=== PATIENT | male | born 1965 | race American Indian/Alaskan Native ===

== ENCOUNTER 2017-08-02 19:12 | Emergency (ER) | payer MEDICAID ==
[2017-08-02 19:21] VITALS: BP 136/89
--- NOTE | 2017-08-02 22:07 | XRay Report ---
FINAL REPORT EXAM: XR CHEST ROUTINE 2V HISTORY: CCC TECHNIQUE: PA and lateral views of the chest PRIORS: None. FINDINGS: Lines, tubes, and devices: N/A Lungs and pleura: Trachea is normal in position. Lungs are clear of infiltrate, pleural effusion, vascular congestion, or pneumothorax. Cardiomediastinal silhouette: Cardiac and mediastinal silhouettes are unremarkable. Other: Bony structures are intact. IMPRESSION: No acute cardiopulmonary process seen.
--- NOTE | 2017-08-02 22:28 | Emergency Department Report ---
- General Chief Complaint: Upper Respiratory Infection Stated Complaint: cold Time Seen by Provider: 08/02/17 20:15 Source: patient Mode of arrival: Ambulatory Limitations: No Limitations - History of Present Illness Initial Comments: 52-year-old -[place] male comes in for concerns of pneumonia exposure. He reports that his mother is admitted to the hospital she was diagnosed with pneumonia and he's been having coughing. Patient denies any fever no chills no nausea no vomiting he does admit to cough runny nose sore throat as burning. He does have a past medical history diabetes as well as chronic back pain. Patient also complains of his back pain and says he would not be receiving this pain specialist until next week. MD Complaint: cough, sore throat, rhinorrhea, nasal congestion Quality: burning, aching Consistency: constant Worsens With: activity (back pain) Associated Symptoms: rhinorrhea, nasal congestion, sore throat. denies: fever, chills, headache, stiff neck, chest pain, shortness of breath, abdominal pain, nausea, vomiting, diarrhea - Related Data Home Medications Medication Instructions Recorded Confirmed Last Taken metFORMIN [Glucophage] 500 mg PO BID 12/31/15 08/02/17 Unknown Baclofen [Lioresal] 10 mg PO TID 08/02/17 08/02/17 Unknown Gabapentin 300 mg PO BID 08/02/17 08/02/17 Unknown HYDROcodone/APAP 5-325 [[place] 2 each PO Q6HR PRN 08/02/17 08/02/17 Unknown 5-325 mg TAB] Previous Rx's Medication Instructions Recorded Last Taken Type Benzonatate [Tessalon Perles] 100 mg PO Q8HR #15 capsule 08/02/17 Unknown Rx traMADol [Ultram 50 MG tab] 50 mg PO Q4HR PRN #12 tablet 08/02/17 Unknown Rx Allergies Allergy/AdvReac Type Severity Reaction Status Date / Time aspirin Allergy Hives Verified 03/24/15 13:35 ED Review of Systems ROS: Stated complaint: cold Other details as noted in HPI Constitutional: denies: chills, fever Eyes: denies: eye pain, eye discharge, vision change ENT: throat pain, congestion Respiratory: cough Cardiovascular: denies: chest pain, palpitations Endocrine: no symptoms reported Gastrointestinal: denies: abdominal pain, nausea, diarrhea Genitourinary: denies: urgency, dysuria Musculoskeletal: denies: back pain, joint swelling, arthralgia Skin: denies: rash, lesions Neurological: denies: headache, weakness, paresthesias Psychiatric: denies: anxiety, depression Hematological/Lymphatic: denies: easy bleeding, easy bruising ED Past Medical Hx - Past Medical History Hx Diabetes: Yes Hx Asthma: Yes - Surgical History Additional Surgical History: l4-l5 removal - Social History Smoking Status: Never Smoker Substance Use Type: None - Medications Home Medications: Home Medications Medication Instructions Recorded Confirmed Last Taken Type metFORMIN [Glucophage] 500 mg PO BID 12/31/15 08/02/17 Unknown History Baclofen [Lioresal] 10 mg PO TID 08/02/17 08/02/17 Unknown History Benzonatate [Tessalon Perles] 100 mg PO Q8HR #15 capsule 08/02/17 Unknown Rx Gabapentin 300 mg PO BID 08/02/17 08/02/17 Unknown History HYDROcodone/APAP 5-325 [[place] 2 each PO Q6HR PRN 08/02/17 08/02/17 Unknown History 5-325 mg TAB] traMADol [Ultram 50 MG tab] 50 mg PO Q4HR PRN #12 tablet 08/02/17 Unknown Rx ED Physical Exam - General Limitations: No Limitations General appearance: alert, in no apparent distress - Head Head exam: Present: atraumatic, normocephalic - Eye Eye exam: Present: normal appearance - ENT ENT exam: Present: mucous membranes moist - Neck Neck exam: Present: normal inspection - Respiratory Respiratory exam: Present: normal lung sounds bilaterally. Absent: respiratory distress - Cardiovascular Cardiovascular Exam: Present: regular rate, normal rhythm. Absent: systolic murmur, diastolic murmur, rubs, gallop - GI/Abdominal GI/Abdominal exam: Present: soft, normal bowel sounds - Rectal Rectal exam: Present: deferred - Extremities Exam Extremities exam: Present: normal inspection - Back Exam Back exam: Present: normal inspection - Neurological Exam Neurological exam: Present: alert, oriented X3 - Psychiatric Psychiatric exam: Present: normal affect, normal mood - Skin Skin exam: Present: warm, dry, intact, normal color. Absent: rash ED Course Vital Signs 08/02/17 19:12 Temperature 98.8 F Pulse Rate 83 Respiratory 18 Rate Blood Pressure 136/89 O2 Sat by Pulse 98 Oximetry ED Medical Decision Making - Medical Decision Making Patient's been evaluated by this provider fast track. Discussed the patient that his x-ray was negative for any pneumonia or bronchitis. Discussed the patient with discharge him on Tessalon Perles for cough and Tylenol for his chronic back pain. Discussed the patient is to follow-up with his primary care provider if symptoms persist or gets worse. He should verbalize understanding Critical care attestation.: If time is entered above; I have spent that time in minutes in the direct care of this critically ill patient, excluding procedure time. ED Disposition Clinical Impression: Chronic back pain greater than 3 months duration Allergic rhinitis Qualifiers: Allergic rhinitis trigger: unspecified Allergic rhinitis seasonality: seasonal Qualified Code(s): J30.2 - Other seasonal allergic rhinitis Disposition: - TO HOME OR SELFCARE Is pt being admited?: No Does the pt Need Aspirin: No Condition: Stable Instructions: Allergic Rhinitis (ED), Chronic Back Pain (ED) Additional Instructions: Take medication as prescribed. Symptoms persist or gets worse follow-up with her primary care provider. Prescriptions: Benzonatate [Tessalon Perles] 100 mg PO Q8HR #15 capsule traMADol [Ultram 50 MG tab] 50 mg PO Q4HR PRN #12 tablet PRN Reason: Pain Referrals: FRENCH MOROCHO MD [Primary Care Provider] - 3-5 Days Forms: Work/School Release Form(ED)
== END 2017-08-02 22:35 | disposition home or self-care (01) ==
LOC: ED 19:12
DX: J30.9 Allergic rhinitis, unspecified (principal); G89.29 Other chronic pain; M54.9 Dorsalgia, unspecified; E11.9 Type 2 diabetes mellitus without complications; J45.909 Unspecified asthma, uncomplicated; Z88.6 Allergy status to analgesic agent
CPT/HCPCS: 71046; 99283

== ENCOUNTER 2017-08-31 16:40 | Emergency (ER) | payer MEDICAID ==
[2017-08-31 19:12] LABS: Basophils # (Auto) 0.1 K/mm3 (0.0-0.1); Basophils % (Auto) 1.2 % (0.0-1.8); Eosinophils # (Auto) 0.2 K/mm3 (0.0-0.4); Eosinophils % (Auto) 2.2 % (0.0-4.3); Hematocrit 48.1 % (35.5-45.6); Hemoglobin 16.1 gm/dl (11.8-15.2); Lymphocytes # (Auto) 2.6 K/mm3 (1.2-5.4); Lymphocytes % (Auto) 27.5 % (13.4-35.0); Mean Corpuscular HGB Conc 33 % (32-34); Mean Corpuscular Hemoglobin 30 pg (28-32); Mean Corpuscular Volume 89 fl (84-94); Monocytes # (Auto) 0.6 K/mm3 (0.0-0.8); Monocytes % (Auto) 6.7 % (0.0-7.3); Platelet Count 319 K/mm3 (140-440)
[2017-08-31 19:20] LABS: BUN/Creatinine Ratio 7; Blood Urea Nitrogen 6 mg/dL (9-20); Calcium 9.1 mg/dL (8.4-10.2); Hemolysis Index 13
[2017-08-31 19:31] LABS: Bilirubin,Urine NEG (Negative); Blood,Urine NEG (Negative); Color,Urine Yellow (Yellow); Protein,Urine <15 mg/dL mg/dL (Negative); Urobilinogen,Urine < 2.0 mg/dL (<2.0)
[2017-08-31 19:38] LABS: Amphetamine Screen,Urine PRESUMPTIVE NEGATIVE; Benzodiazepines Screen,Urine PRESUMPTIVE NEGATIVE; Cannabinoid Screen,Urine PRESUMPTIVE NEGATIVE; Methadone Screen,Urine PRESUMPTIVE NEGATIVE; Opiate Screen,Urine PRESUMPTIVE NEGATIVE
[2017-08-31 20:01] LABS: Cocaine Screen,Urine PRESUMPTIVE POSITIVE
[2017-08-31] MEDS ORDERED: NACL 0.9% 1000 ML 1,000 ML IV ONE ×2 (23:35)
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
[2017-09-01] MEDS ORDERED: HumuLIN R SUB-Q ONE (00:20)
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
[2017-09-01] MEDS ORDERED: NACL 0.9% 1000 ML 1,000 ML IV ONE (01:08)
[2017-09-01] MEDS: LIORESAL PO SCH ×3 (08:00→19:50)
[2017-09-01] MEDS ORDERED: GLUCOPHAGE PO SCH (08:00)
[2017-09-01] MEDS: NEURONTIN PO SCH ×2 (11:00→21:54)
[2017-09-01] MEDS ORDERED: LIORESAL PO ONE (22:51)
[2017-09-02] MEDS ORDERED: GLUCOPHAGE ONE (10:18)
[2017-09-02] MEDS: LIORESAL PO SCH ×3 (10:27→20:20)
[2017-09-02] MEDS: NEURONTIN PO SCH ×2 (10:27→22:48)
[2017-09-02] MEDS ORDERED: NORCO 5/325 PO PRN (10:33)
--- NOTE | 2017-09-02 12:11 | Consultation ---
History of Present Illness - Reason for Consult Consult date: 09/02/17 Reason for consult: Mental Health Evaluation Requesting physician: DILPI NARANJO - Chief Complaint Chief complaint: "I am suicidal" - History of Present Psychiatric Illness 52-year-old male with a past medical history of asthma, mck-qhabqdi-buodsskwn diabetes, cocaine abuse, and chronic back pain with previous L4-L5 surgery presents to the hospital with complaints of SI's. Today the patient is calm and cooperative during the assessment. 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 He stated that he would walk into traffic to kill himself if he had the chance. He stated a previous suicide attempt when asked. He stated feeling sad, hopeless, and helpless the past couple months. He denies HI's and AVH's. He admitted to erratic sleep and denies a poor appetite. He denies excessive alcohol consumption (etoh). Medications and Allergies Allergies Allergy/AdvReac Type Severity Reaction Status Date / Time aspirin Allergy Hives Verified 03/24/15 13:35 Home Medications Medication Instructions Recorded Confirmed Last Taken Type metFORMIN [Glucophage] 500 mg PO BID 12/31/15 09/02/17 Unknown History Baclofen [Lioresal] 10 mg PO TID 08/02/17 09/02/17 Unknown History Benzonatate [Tessalon Perles] 100 mg PO Q8HR #15 capsule 08/02/17 09/02/17 Unknown Rx Gabapentin 300 mg PO BID 08/02/17 09/02/17 Unknown History HYDROcodone/APAP 5-325 [[place] 2 each PO Q6HR PRN 08/02/17 09/02/17 Unknown History 5-325 mg TAB] Active Meds: Active Medications Acetaminophen/Hydrocodone Bitart ([place] 5/325) 2 each PO Q6HR PRN PRN Reason: Pain Baclofen (Lioresal) 10 mg PO TID [facility] Last Admin: 09/02/17 10:27 Dose: 10 mg Benzonatate (Tessalon Perles) 100 mg PO Q8HR JASMYNE Gabapentin (Neurontin) 300 mg PO BID [facility] Last Admin: 09/02/17 10:27 Dose: 300 mg Metformin HCl (Glucophage) 500 mg PO ONCE ONE Stop: 09/03/17 08:01 Last Admin: 09/02/17 10:40 Dose: 500 mg Past psychiatric history - Past Medical History Past Medical History: diabetes, other (Chronic back pain) Past Surgical History: Other (Back Surgery) - past Psychiatric treatment and history psychiatric treatment history: a hx of substance abuse. Denies a psy fam hx. - Social History Social history: other (Homeless) Mental Status Exam - Vital signs Last Vital Signs Temp 97.6 F 09/02/17 08:24 Pulse 66 09/02/17 08:24 Resp 20 09/02/17 08:24 BP 119/80 09/02/17 08:24 Pulse Ox 98 09/02/17 08:24 - Exam Narrative exam: MSE: Appearance: calm, cooperative Behavior: regular eye contact Speech: regular rate and tone, hyper verbal Mood: "depressed" Affect: flat Thought Process: circumstantial Thought Content: denies HI's and AVH's Motor Activity: sitting up in bed Cognition: A/O x3 Insight: fair Judgment: variable Results Result Diagrams: 08/31/17 18:54 08/31/17 18:54 Abnormal lab results 09/02/17 Range/Units 10:29 POC Glucose 329 H (70-105) All other labs normal. Assessment and Plan Assessment and plan: Impression: MDD, Severe Type. Substance Use DO. (Cocaine). Today the patient is calm and cooperative during the assessment. The patient endorses SI's. DDx: R/O Bipolar DO, R/O Substance Induced Mood DO Recommendation/Plan: Continue 1013 with placement to inpatient psy services. Start Zoloft 50 mg Po daily for depression and Trazodone 50 mg PO HS PRN for sleep. Discussed black box warnings with patient reference antidepressants.
[2017-09-02] MEDS ORDERED: DESYREL PO PRN (12:22)
[2017-09-02] MEDS: ZOLOFT PO SCH (12:53)
[2017-09-02] MEDS: TESSALON PERLES PO SCH ×2 (13:33→22:49)
[2017-09-03] MEDS ORDERED: GLUCOPHAGE PO ONE (08:00)
[2017-09-03] MEDS: LIORESAL PO SCH ×3 (09:16→21:38)
[2017-09-03] MEDS: GLUCOPHAGE PO SCH ×3 (09:16→19:25)
[2017-09-03] MEDS: TESSALON PERLES PO SCH ×3 (09:16→23:12)
[2017-09-03] MEDS: NEURONTIN PO SCH ×2 (10:07→23:12)
[2017-09-03] MEDS: ZOLOFT PO SCH (10:07)
--- NOTE | 2017-09-03 14:17 | Progress Note ---
Subjective - Reason for Consult Consult date: 09/03/17 Reason for consult: Psychiatric Follow-up Evaluation - Chief Complaint Chief complaint: "" 52-year-old male with a past medical history of asthma, [id number] diabetes, cocaine abuse, and chronic back pain with previous L4-L5 surgery presents to the hospital with complaints of SI's. Mental Status Exam - Vital signs Last Vital Signs Temp 99.2 F 09/02/17 12:27 Pulse 82 09/03/17 08:52 Resp 16 09/03/17 09:16 BP 119/78 09/03/17 08:52 Pulse Ox 99 09/03/17 08:55 - Exam Narrative exam: Mental Status Exam: Appearance: calm, cooperative Behavior: regular eye contact Speech: regular rate and tone, hyper verbal Mood: "" Affect: flat Thought Process: circumstantial Thought Content: denies HI's and AVH's Motor Activity: sitting up in bed Cognition: A/O x3 Insight: fair Judgment: variable Assessment and Plan Assessment and plan: Impression: MDD, Severe Type. Substance Use DO. (Cocaine). Today the patient is calm and cooperative during the assessment. The patient endorses SI's. DDx: R/O Bipolar DO, R/O Substance Induced Mood DO Recommendation/Plan: Continue 1013 with placement to inpatient psy services. Start Zoloft 50 mg Po daily for depression and Trazodone 50 mg PO HS PRN for sleep. Discussed black box warnings with patient reference antidepressants.
[2017-09-04 02:36] VITALS: BP 124/78
== END 2017-09-04 04:33 ==
LOC: ED 16:40 → EEVIPCON 16:40 → ED 09-04 04:33
DX: K44.9 Diaphragmatic hernia without obstruction or gangrene (principal); F14.10 Cocaine abuse, uncomplicated; M46.80 Other specified inflammatory spondylopathies, site unspecified; R45.851 Suicidal ideations; E11.9 Type 2 diabetes mellitus without complications; F17.200 Nicotine dependence, unspecified, uncomplicated; F12.10 Cannabis abuse, uncomplicated; Z88.6 Allergy status to analgesic agent
CPT/HCPCS: 36415; 70450; 71046; 74177; 80048; 80307; 81001; 82550; 82962; 85025; 96360; 96361; 96372; 99285; G0480; J7030; Q9967; 80320; J1815

== ENCOUNTER 2018-10-10 03:48 | Emergency (ER) | payer MEDICAID ==
[2018-10-10 03:58] VITALS: BP 132/85
--- NOTE | 2018-10-10 04:26 | XRay Report ---
PROCEDURE: XR CHEST 1V AP TECHNIQUE: Chest radiograph single view. HISTORY: Chest Pain COMPARISONS: 08/31/2017 . FINDINGS: Heart: Normal. Mediastinum/Vessels: Normal. Lungs/Pleural space: Normal. Bony thorax: No acute osseous abnormality. Life support devices: None. IMPRESSION: No acute cardiopulmonary abnormality. This document is electronically signed by Vinny Chan MD., October 10 2018 04:24:27 AM ET
[2018-10-10 04:51] LABS: Basophils # (Auto) 0.1 K/mm3 (0.0-0.1); Basophils % (Auto) 0.8 % (0.0-1.8); Eosinophils % (Auto) 0.4 % (0.0-4.3); Hematocrit 38.8 % (35.5-45.6); Hemoglobin 13.7 gm/dl (11.8-15.2); Lymphocytes # (Auto) 1.7 K/mm3 (1.2-5.4); Lymphocytes % (Auto) 23.8 % (13.4-35.0); Mean Corpuscular HGB Conc 35 % (32-34); Mean Corpuscular Volume 90 fl (84-94); Monocytes # (Auto) 0.9 K/mm3 (0.0-0.8); Monocytes % (Auto) 12.7 % (0.0-7.3); Platelet Count 291 K/mm3 (140-440); Red Blood Count 4.34 M/mm3 (3.65-5.03)
[2018-10-10 05:27] LABS: BUN/Creatinine Ratio 9; Blood Urea Nitrogen 7 mg/dL (9-20); Calcium 8.7 mg/dL (8.4-10.2); Hemolysis Index 8
--- NOTE | 2018-10-10 08:20 | Emergency Department Report ---
HPI - General Chief Complaint: Chest Pain Time Seen by Provider: 10/10/18 08:04 - HPI HPI: Patient is a 53-year-old male comes to the ER today complaining of cough, congestion. He reports to me that his chest hurts when he coughs. [facility] and given nasal spray and what sounds like Claritin. He was not given antibiotics. And his cough has persisted. He has no fever. He is ambulatory and nontoxic. ED Past Medical Hx - Past Medical History Previous Medical History?: Yes Hx Diabetes: Yes Hx Psychiatric Treatment: Yes (DRUG USE) Hx Asthma: Yes - Surgical History Past Surgical History?: Yes Additional Surgical History: l4-l5 removal - Family History Family history: no significant - Social History Smoking Status: Never Smoker Substance Use Type: None - Medications Home Medications: Home Medications Medication Instructions Recorded Confirmed Last Taken Type metFORMIN [Glucophage] 500 mg PO BID 12/31/15 09/02/17 Unknown History Baclofen [Lioresal] 10 mg PO TID 08/02/17 09/02/17 Unknown History Benzonatate [Tessalon Perles] 100 mg PO Q8HR #15 capsule 08/02/17 09/02/17 Unknown Rx Gabapentin 300 mg PO BID 08/02/17 09/02/17 Unknown History HYDROcodone/APAP 5-325 [[place] 2 each PO Q6HR PRN 08/02/17 09/02/17 Unknown History 5-325 mg TAB] Amoxicillin [Trimox CAP] 500 mg PO BID #20 capsule 10/10/18 Unknown Rx Benzonatate [Tessalon Perles] 100 mg PO Q12H PRN #20 capsule 10/10/18 Unknown Rx Fluticasone [Flonase] 1 spray NS QDAY #1 bottle 10/10/18 Unknown Rx predniSONE [Deltasone] 20 mg PO DAILY #5 tablet 10/10/18 Unknown Rx ED Review of Systems ROS: Stated complaint: COUGH, AND COLD SYMPTOMS/CHEST PAIN Other details as noted in HPI Comment: All other systems reviewed and negative Physical Exam - Physical Exam Vital Signs: Vital Signs 10/10/18 10/10/18 03:54 03:55 Temperature 98.0 F 98 F Pulse Rate 92 H 93 H Respiratory 18 18 Rate Blood Pressure 132/85 132/85 O2 Sat by Pulse 100 99 Oximetry Physical Exam: WDWN patient in NAD VS per RN flow sheet Alert and oriented to person, place and time. S1-S2. No S3 or S4. No systolic or diastolic murmur. No JVD. No pitting edema. Lungs clear to auscultation bilaterally anteriorly and posteriorly. Abdomen soft nontender bowel sounds X4 Moves all extremities well. Mood and affect appropriate. ED Course Vital Signs 10/10/18 10/10/18 03:54 03:55 Temperature 98.0 F 98 F Pulse Rate 92 H 93 H Respiratory 18 18 Rate Blood Pressure 132/85 132/85 O2 Sat by Pulse 100 99 Oximetry ED Medical Decision Making - Lab Data Result diagrams: 10/10/18 04:08 10/10/18 04:08 - EKG Data EKG shows normal: sinus rhythm Rate: normal - EKG Data When compared to previous EKG there are: no significant change - Radiology Data Radiology results: report reviewed, image reviewed - Medical Decision Making Vital Signs 10/10/18 10/10/18 03:54 03:55 Temperature 98.0 F 98 F Pulse Rate 92 H 93 H Respiratory 18 18 Rate Blood Pressure 132/85 132/85 O2 Sat by Pulse 100 99 Oximetry Lab Results 10/10/18 10/10/18 10/10/18 Range/Units 04:08 04:08 07:15 WBC 7.3 (4.5-11.0) K/mm3 RBC 4.34 (3.65-5.03) M/mm3 Hgb 13.7 (11.8-15.2) gm/dl Hct 38.8 (35.5-45.6) % MCV 90 (84-94) fl MCH 32 (28-32) pg MCHC 35 H (32-34) % RDW 14.0 (13.2-15.2) % Plt Count 291 (140-440) K/mm3 Lymph % (Auto) 23.8 (13.4-35.0) % [place] % (Auto) 12.7 H (0.0-7.3) % Eos % (Auto) 0.4 (0.0-4.3) % Baso % (Auto) 0.8 (0.0-1.8) % Lymph # 1.7 (1.2-5.4) K/mm3 [place] # 0.9 H (0.0-0.8) K/mm3 Eos # 0.0 (0.0-0.4) K/mm3 Baso # 0.1 (0.0-0.1) K/mm3 Seg Neutrophils % 62.3 (40.0-70.0) % Seg Neutrophils # 4.6 (1.8-7.7) K/mm3 Sodium 140 (137-145) mmol/L Potassium 3.8 (3.6-5.0) mmol/L Chloride 107.4 H (98-107) mmol/L Carbon Dioxide 21 L (22-30) mmol/L Anion Gap 15 mmol/L BUN 7 L (9-20) mg/dL Creatinine 0.8 (0.8-1.5) mg/dL Estimated GFR > 60 ml/min BUN/Creatinine Ratio 9 % Glucose 99 (75-100) mg/dL Calcium 8.7 (8.4-10.2) mg/dL Troponin T < 0.010 < 0.010 (0.00-0.029) ng/mL TROP NEG X 1 12 LEAD WITH NO CHANGE X 2 LABS NOTED XRAY NOTED DC HOME WITH DC PLAN OF CARE AND PCP FOLLOW UP - Differential Diagnosis RO ACS; RO PNA Critical care attestation.: If time is entered above; I have spent that time in minutes in the direct care of this critically ill patient, excluding procedure time. ED Disposition Clinical Impression: URTI (acute upper respiratory infection), Sinusitis Disposition: DC-01 TO HOME OR SELFCARE Is pt being admited?: No Does the pt Need Aspirin: No Condition: Stable Instructions: Upper Respiratory Infection (ED) Additional Instructions: DIET TOLERATED MEDS ORDERED TODAY IN ER FOLLOW INSTRUCTIONS ON THE BOTTLE FOLLOW UP PCP WITHIN 48 HOURS TO ENSURE YOU ARE GETTING BETTER ACTIVITY TOLERATED MOTRIN OR TYLENOL FOR PAIN OR FEVER RETURN TO THE ER FOR WORSENING SYMPTOMS NOT RELIEVED BY YOUR MEDICATIONS. Prescriptions: predniSONE [Deltasone] 20 mg PO DAILY #5 tablet Fluticasone [Flonase] 1 spray NS QDAY #1 bottle Benzonatate [Tessalon Perles] 100 mg PO Q12H PRN #20 capsule PRN Reason: Cough Amoxicillin [Trimox CAP] 500 mg PO BID #20 capsule Referrals: RHEA OROZCO MD [Primary Care Provider] - 3-5 Days [facility] [Outside] - 3-5 Days Forms: AMA Form Time of Disposition: :24
== END 2018-10-10 08:37 | disposition home or self-care (01) ==
LOC: ED 03:48
DX: J06.9 Acute upper respiratory infection, unspecified (principal); J32.9 Chronic sinusitis, unspecified; E11.9 Type 2 diabetes mellitus without complications; F19.90 Other psychoactive substance use, unspecified, uncomplicated; J45.909 Unspecified asthma, uncomplicated; Z79.899 Other long term (current) drug therapy; Z88.6 Allergy status to analgesic agent
CPT/HCPCS: 36415; 71045; 80048; 84484; 85025; 93005; 93010; 99285

== ENCOUNTER 2019-06-13 22:13 | Emergency (ER) | payer MEDICAID ==
--- NOTE | 2019-06-14 01:46 | Emergency Department Report ---
HPI - General Chief Complaint: Psych Time Seen by Provider: 06/14/19 01:05 - [facility] HPI: Count Includes [facility] 12 The patient is a 54-year-old male present with a chief complaint of suicidal ideation. Patient states he is felt suicidal since yesterday and has had incre ased vivid dreams. Patient denies any attempts at harming himself recently but states his plan was to walk into traffic like he is done in the past. ED Past Medical Hx - Past Medical History Previous Medical History?: Yes Hx Hypertension: Yes Hx Diabetes: Yes Hx Psychiatric Treatment: Yes (chronic depression) Hx Asthma: Yes Additional medical history: pneumonia - Surgical History Past Surgical History?: Yes Additional Surgical History: back sx L6-L7 - Family History Family history: no significant - Social History Smoking Status: Current Every Day Smoker Substance Use Type: Alcohol, Cocaine - Medications Home Medications: Home Medications Medication Instructions Recorded Confirmed Last Taken Type Baclofen [Lioresal] 10 mg PO TID 08/02/17 06/14/19 Unknown History Gabapentin 300 mg PO BID 08/02/17 06/14/19 Unknown History HYDROcodone/APAP 5-325 [[place] 2 each PO Q6HR PRN 08/02/17 06/14/19 Unknown History 5-325 mg TAB] Fluticasone [Flonase] 1 spray NS QDAY #1 bottle 10/10/18 06/14/19 Unknown Rx Mirtazapine [Remeron 15mg TAB] 15 mg PO QHS 06/14/19 06/14/19 Unknown History ED Review of Systems ROS: Stated complaint: MH Other details as noted in HPI Psychiatric: suicidal thoughts Physical Exam - Physical Exam Vital Signs: Vital Signs 06/13/19 22:35 Temperature 97.7 F Pulse Rate 88 Respiratory 18 Rate Blood Pressure 127/69 Blood Pressure 127/69 [Left] O2 Sat by Pulse 95 Oximetry Physical Exam: GENERAL: The patient is well-developed well-nourished male standing next to chair going through his belongings in a book bag not appearing to be in acute distress. [] HEENT: Normocephalic. Atraumatic. Extraocular motions are intact. Patient has moist mucous membranes. NECK: Supple. Trachea midline CHEST/LUNGS: Clear to auscultation. There is no respiratory distress noted. HEART/CARDIOVASCULAR: Regular. There is no tachycardia. There is no gallop rub or murmur. ABDOMEN: Abdomen is soft, nontender. Patient has normal bowel sounds. There is no abdominal distention. SKIN: There is no rash. There is no edema. There is no diaphoresis. NEURO: The patient is awake, alert, and oriented. The patient is cooperative. The patient has no focal neurologic deficits. The patient has normal speech and gait. MUSCULOSKELETAL: There is no evidence of acute injury. ED Course Vital Signs 06/13/19 22:35 Temperature 97.7 F Pulse Rate 88 Respiratory 18 Rate Blood Pressure 127/69 Blood Pressure 127/69 [Left] O2 Sat by Pulse 95 Oximetry ED Medical Decision Making - Lab Data Result diagrams: 06/14/19 01:49 06/14/19 01:49 Laboratory Last Values WBC 6.9 K/mm3 (4.5-11.0) 06/14/19 01:49 RBC 4.85 M/mm3 (3.65-5.03) 06/14/19 01:49 Hgb 15.2 gm/dl (11.8-15.2) 06/14/19 01:49 Hct 44.6 % (35.5-45.6) 06/14/19 01:49 MCV 92 fl (84-94) 06/14/19 01:49 MCH 31 pg (28-32) 06/14/19 01:49 MCHC 34 % (32-34) 06/14/19 01:49 RDW 14.8 % (13.2-15.2) 06/14/19 01:49 Plt Count 209 K/mm3 (140-440) 06/14/19 01:49 Lymph % (Auto) 36.7 % (13.4-35.0) H 06/14/19 01:49 [place] % (Auto) 9.0 % (0.0-7.3) H 06/14/19 01:49 Eos % (Auto) 4.6 % (0.0-4.3) H 06/14/19 01:49 Baso % (Auto) 1.2 % (0.0-1.8) 06/14/19 01:49 Lymph # 2.6 K/mm3 (1.2-5.4) 06/14/19 01:49 [place] # 0.6 K/mm3 (0.0-0.8) 06/14/19 01:49 Eos # 0.3 K/mm3 (0.0-0.4) 06/14/19 01:49 Baso # 0.1 K/mm3 (0.0-0.1) 06/14/19 01:49 Seg Neutrophils % 48.5 % (40.0-70.0) 06/14/19 01:49 Seg Neutrophils # 3.4 K/mm3 (1.8-7.7) 06/14/19 01:49 Sodium 141 mmol/L (137-145) 06/14/19 01:49 Potassium 4.4 mmol/L (3.6-5.0) 06/14/19 01:49 Chloride 103.8 mmol/L (98-107) 06/14/19 01:49 Carbon Dioxide 24 mmol/L (22-30) 06/14/19 01:49 Anion Gap 18 mmol/L 06/14/19 01:49 BUN 10 mg/dL (9-20) 06/14/19 01:49 Creatinine 0.9 mg/dL (0.8-1.5) 06/14/19 01:49 Estimated GFR > 60 ml/min 06/14/19 01:49 BUN/Creatinine Ratio 11 % 06/14/19 01:49 Glucose 289 mg/dL (75-100) H 06/14/19 01:49 Calcium 9.3 mg/dL (8.4-10.2) 06/14/19 01:49 Total Bilirubin 0.30 mg/dL (0.1-1.2) 06/14/19 01:49 AST 55 units/L (5-40) H 06/14/19 01:49 ALT 61 units/L (7-56) H 06/14/19 01:49 Alkaline Phosphatase 91 units/L (35-129) 06/14/19 01:49 Total Protein 5.5 g/dL (6.3-8.2) L 06/14/19 01:49 Albumin 3.7 g/dL (3.9-5) L 06/14/19 01:49 Albumin/Globulin Ratio 2.1 % 06/14/19 01:49 Urine Color Yellow (Yellow) 06/14/19 Unknown Urine Turbidity Clear (Clear) 06/14/19 Unknown Urine pH 5.0 (5.0-7.0) 06/14/19 Unknown Ur Specific [place] 1.018 (1.003-1.030) 06/14/19 Unknown Urine Protein <15 mg/dl mg/dL (Negative) 06/14/19 Unknown Urine Glucose (UA) >=500 mg/dL (Negative) 06/14/19 Unknown Urine Ketones Neg mg/dL (Negative) 06/14/19 Unknown Urine Blood Neg (Negative) 06/14/19 Unknown Urine Nitrite Neg (Negative) 06/14/19 Unknown Urine Bilirubin Neg (Negative) 06/14/19 Unknown Urine Urobilinogen < 2.0 mg/dL (<2.0) 06/14/19 Unknown Ur Leukocyte Esterase Neg (Negative) 06/14/19 Unknown Urine WBC (Auto) < 1.0 /HPF (0.0-6.0) 06/14/19 Unknown Urine RBC (Auto) 1.0 /HPF (0.0-6.0) 06/14/19 Unknown U Epithel Cells (Auto) < 1.0 /HPF (0-13.0) 06/14/19 Unknown Urine Mucus Few /HPF 06/14/19 Unknown Salicylates < 0.3 mg/dL (2.8-20.0) L 06/14/19 01:49 Urine Opiates Screen Presumptive negative 06/14/19 Unknown Urine Methadone Screen Presumptive negative 06/14/19 Unknown Acetaminophen < 5.0 ug/mL (10.0-30.0) L 06/14/19 01:49 Ur Barbiturates Screen Presumptive negative 06/14/19 Unknown Ur Phencyclidine Scrn Presumptive negative 06/14/19 Unknown Ur Amphetamines Screen Presumptive negative 06/14/19 Unknown U Benzodiazepines Scrn Presumptive negative 06/14/19 Unknown Urine Cocaine Screen Presumptive negative 06/14/19 Unknown U Marijuana (THC) Screen Presumptive negative 06/14/19 Unknown Drugs of Abuse Note Disclamer 06/14/19 Unknown Plasma/Serum Alcohol < 0.01 % (0-0.07) 06/14/19 01:49 - Differential Diagnosis Suicidal ideation Critical care attestation.: If time is entered above; I have spent that time in minutes in the direct care of this critically ill patient, excluding procedure time. ED Disposition Clinical Impression: Suicidal ideation Disposition: DC/TX-65 PSY HOSP/PSY UNIT Is pt being admited?: No Does the pt Need Aspirin: No Condition: Fair Referrals: PRIMARY CARE, [Primary Care Provider] - 3-5 Days Time of Disposition: 01:46 (Awaiting acceptance)
[2019-06-14 01:56] LABS: Bilirubin,Urine NEG (Negative); Blood,Urine NEG (Negative); Color,Urine Yellow (Yellow); Mucus,Urine FEW /HPF; Protein,Urine <15 mg/dL mg/dL (Negative); Urobilinogen,Urine < 2.0 mg/dL (<2.0); WBC,Urine < 1.0 /HPF (0.0-6.0)
[2019-06-14 02:05] LABS: Amphetamine Screen,Urine PRESUMPTIVE NEGATIVE; Benzodiazepines Screen,Urine PRESUMPTIVE NEGATIVE; Cannabinoid Screen,Urine PRESUMPTIVE NEGATIVE; Cocaine Screen,Urine PRESUMPTIVE NEGATIVE; Methadone Screen,Urine PRESUMPTIVE NEGATIVE; Opiate Screen,Urine PRESUMPTIVE NEGATIVE
[2019-06-14 02:11] LABS: Basophils # (Auto) 0.1 K/mm3 (0.0-0.1); Basophils % (Auto) 1.2 % (0.0-1.8); Eosinophils # (Auto) 0.3 K/mm3 (0.0-0.4); Eosinophils % (Auto) 4.6 % (0.0-4.3); Hematocrit 44.6 % (35.5-45.6); Hemoglobin 15.2 gm/dl (11.8-15.2); Lymphocytes # (Auto) 2.6 K/mm3 (1.2-5.4); Lymphocytes % (Auto) 36.7 % (13.4-35.0); Mean Corpuscular HGB Conc 34 % (32-34); Mean Corpuscular Volume 92 fl (84-94); Monocytes # (Auto) 0.6 K/mm3 (0.0-0.8); Platelet Count 209 K/mm3 (140-440); Red Blood Count 4.85 M/mm3 (3.65-5.03); Red Cell Distribution Width 14.8 % (13.2-15.2)
[2019-06-14 02:35] LABS: Alanine Aminotransferase 61 units/L (7-56); Albumin 3.7 g/dL (3.9-5); BUN/Creatinine Ratio 11; Blood Urea Nitrogen 10 mg/dL (9-20); Calcium 9.3 mg/dL (8.4-10.2); Hemolysis Index 20
[2019-06-14 13:51] VITALS: BP 134/87
== END 2019-06-14 17:43 ==
LOC: EEVIPCON 22:13 → ED 22:13
DX: R45.851 Suicidal ideations (principal); I10 Essential (primary) hypertension; E11.9 Type 2 diabetes mellitus without complications; J45.909 Unspecified asthma, uncomplicated; F17.200 Nicotine dependence, unspecified, uncomplicated; F14.10 Cocaine abuse, uncomplicated; Z79.899 Other long term (current) drug therapy; Z88.6 Allergy status to analgesic agent
CPT/HCPCS: 36415; 80053; 80307; 80320; 81001; 82962; 85025; G0480

== ENCOUNTER 2020-02-16 10:26 | Emergency (ER) | payer MEDICAID ==
[2020-02-16] MEDS ORDERED: SODIUM CHLORIDE 0.9% 1000 ML 1,000 ML IV ONE (10:58)
[2020-02-16 12:05] LABS: Basophils # (Auto) 0.1 K/mm3 (0.0-0.1); Basophils % (Auto) 0.8 % (0.0-1.8); Eosinophils # (Auto) 0.1 K/mm3 (0.0-0.4); Eosinophils % (Auto) 1.6 % (0.0-4.3); Lymphocytes # (Auto) 2.5 K/mm3 (1.2-5.4); Lymphocytes % (Auto) 32.5 % (13.4-35.0); Mean Corpuscular HGB Conc 37 % (32-34); Mean Corpuscular Volume 89 fl (84-94); Monocytes # (Auto) 0.5 K/mm3 (0.0-0.8); Monocytes % (Auto) 6.4 % (0.0-7.3); Platelet Count 247 K/mm3 (140-440); Red Blood Count 4.81 M/mm3 (3.65-5.03)
[2020-02-16 12:12] LABS: Hematocrit 42.7 % (35.5-45.6); Hemoglobin 15.7 gm/dl (11.8-15.2)
[2020-02-16 12:22] LABS: INR 0.79 (0.87-1.13)
[2020-02-16 12:23] LABS: Creatine Kinase MB 6.4 ng/mL (0.0-4.0); Partial Thromboplastin Time 24.6 Sec. (24.2-36.6)
[2020-02-16 12:24] LABS: Alanine Aminotransferase 31 units/L (7-56); Albumin 4.2 g/dL (3.9-5)
[2020-02-16 12:27] LABS: Bilirubin,Direct < 0.2 mg/dL (0-0.2)
[2020-02-16 12:28] LABS: BUN/Creatinine Ratio 15; Blood Urea Nitrogen 15 mg/dL (9-20); Calcium 9.5 mg/dL (8.4-10.2); Hemolysis Index 117
[2020-02-16 14:02] LABS: Bilirubin,Urine NEG (Negative); Blood,Urine NEG (Negative); Color,Urine Colorless (Yellow); Mucus,Urine FEW /HPF; Protein,Urine <15 mg/dL mg/dL (Negative); Urobilinogen,Urine < 2.0 mg/dL (<2.0)
[2020-02-16 14:07] LABS: WBC,Urine < 1.0 /HPF (0.0-6.0)
[2020-02-16 14:12] LABS: Amphetamine Screen,Urine Negative; Benzodiazepines Screen,Urine Negative; Cannabinoid Screen,Urine Negative; Cocaine Screen,Urine Negative; Methadone Screen,Urine Negative; Opiate Screen,Urine Negative
[2020-02-16] MEDS ORDERED: INSULIN REGULAR, HUMAN 100 UNIT/ML 3ML VIAL IV ONE (14:25)
--- NOTE | 2020-02-16 14:34 | Emergency Department Report ---
ED General Adult HPI - General Chief complaint: Hyperglycemia Stated complaint: HIGH GLUCOSE Source: patient Mode of arrival: Ambulatory Limitations: No Limitations - History of Present Illness Initial comments: This is a 55-year-old type II diabetic man who was found to have an elevated blood sugar and his drug rehab program. He is taking Metformin 500 mg twice daily. He states he went to [facility] for the same problem a few days ago. He states that his metformin dose was not altered nor was he placed on insulin. He essentially has had the polys for the last at least 1 week. He denies fever chills shortness of breath vomiting or fever. He states he is not been on insulin in the past. -: Gradual, week(s) Associated Symptoms: denies other symptoms Treatments Prior to Arrival: other (Metformin) - Related Data Home Medications Medication Instructions Recorded Confirmed Last Taken Baclofen [Lioresal] 10 mg PO TID 08/02/17 06/14/19 Unknown Gabapentin 300 mg PO BID 08/02/17 06/14/19 Unknown HYDROcodone/APAP 5-325 [Latexo 2 each PO Q6HR PRN 08/02/17 06/14/19 Unknown 5-325 mg TAB] Mirtazapine [Remeron 15mg TAB] 15 mg PO QHS 06/14/19 06/14/19 Unknown Previous Rx's Medication Instructions Recorded Last Taken Type Fluticasone [Flonase] 1 spray NS QDAY #1 bottle 10/10/18 Unknown Rx Insulin Regular, Human [HumuLIN R] 1 units SUB-Q BID #1 bottle 02/16/20 Unknown Rx Metformin HCl [metFORMIN] 1,000 mg PO BID #60 tablet 02/16/20 Unknown Rx Allergies Allergy/AdvReac Type Severity Reaction Status Date / Time aspirin Allergy Hives Verified 03/24/15 13:35 ED Review of Systems ROS: Stated complaint: HIGH GLUCOSE Other details as noted in HPI Constitutional: denies: chills, fever Eyes: denies: eye pain, eye discharge, vision change ENT: denies: ear pain, throat pain Respiratory: denies: cough, shortness of breath, wheezing Cardiovascular: denies: chest pain, palpitations Endocrine: see HPI Gastrointestinal: denies: abdominal pain, nausea, diarrhea Genitourinary: denies: urgency, dysuria Musculoskeletal: denies: back pain, joint swelling, arthralgia Skin: denies: rash, lesions Neurological: denies: headache, weakness, paresthesias Psychiatric: denies: anxiety, depression Hematological/Lymphatic: denies: easy bleeding, easy bruising ED Past Medical Hx - Past Medical History Previous Medical History?: Yes Hx Hypertension: Yes Hx Diabetes: Yes Hx Psychiatric Treatment: Yes (chronic depression) Hx Asthma: Yes Additional medical history: pneumonia - Surgical History Past Surgical History?: Yes Additional Surgical History: back sx L6-L7 - Social History Smoking Status: Current Every Day Smoker Substance Use Type: Cocaine - Medications Home Medications: Home Medications Medication Instructions Recorded Confirmed Last Taken Type Baclofen [Lioresal] 10 mg PO TID 08/02/17 06/14/19 Unknown History Gabapentin 300 mg PO BID 08/02/17 06/14/19 Unknown History HYDROcodone/APAP 5-325 [Latexo 2 each PO Q6HR PRN 08/02/17 06/14/19 Unknown History 5-325 mg TAB] Fluticasone [Flonase] 1 spray NS QDAY #1 bottle 10/10/18 06/14/19 Unknown Rx Mirtazapine [Remeron 15mg TAB] 15 mg PO QHS 06/14/19 06/14/19 Unknown History Insulin Regular, Human [HumuLIN R] 1 units SUB-Q BID #1 bottle 02/16/20 Unknown Rx Metformin HCl [metFORMIN] 1,000 mg PO BID #60 tablet 02/16/20 Unknown Rx ED Physical Exam - General Limitations: No Limitations General appearance: alert, in no apparent distress - Head Head exam: Present: atraumatic, normocephalic - Eye Eye exam: Present: normal appearance. Absent: scleral icterus - ENT ENT exam: Present: mucous membranes moist - Neck Neck exam: Present: normal inspection - Respiratory Respiratory exam: Present: normal lung sounds bilaterally. Absent: respiratory distress - Cardiovascular Cardiovascular Exam: Present: regular rate, normal rhythm. Absent: systolic murmur, diastolic murmur, rubs, gallop - GI/Abdominal GI/Abdominal exam: Present: soft, normal bowel sounds. Absent: distended, tenderness, guarding, rebound, rigid - Rectal Rectal exam: Present: deferred - Extremities Exam Extremities exam: Present: normal inspection. Absent: pedal edema, calf tenderness - Back Exam Back exam: Present: normal inspection - Neurological Exam Neurological exam: Present: alert, oriented X3, CN II-XII intact. Absent: motor sensory deficit - Psychiatric Psychiatric exam: Present: normal affect, normal mood - Skin Skin exam: Present: warm, dry, intact, normal color. Absent: rash ED Course Vital Signs 02/16/20 10:43 Temperature 97.8 F Pulse Rate 75 Respiratory 18 Rate Blood Pressure 114/78 O2 Sat by Pulse 96 Oximetry - Reevaluation(s) Reevaluation #1: IV fluids, IV insulin, patient will be discharged on Metformin 1000 mg twice daily and sliding scale insulin. He is referred to primary care. 02/16/20 14:33 ED Medical Decision Making - Lab Data Result diagrams: 02/16/20 11:14 02/16/20 11:14 Laboratory Results - last 24 hr 02/16/20 02/16/20 02/16/20 11:01 11:14 11:14 WBC 7.6 RBC 4.81 Hgb 15.7 H Hct 42.7 MCV 89 MCH 33 H MCHC 37 H RDW 13.0 L Plt Count 247 Lymph % (Auto) 32.5 [place] % (Auto) 6.4 Eos % (Auto) 1.6 Baso % (Auto) 0.8 Lymph # (Auto) 2.5 [place] # (Auto) 0.5 Eos # (Auto) 0.1 Baso # (Auto) 0.1 Seg Neutrophils % 58.7 Seg Neutrophils # 4.5 PT INR APTT Sodium 132 L Potassium 4.5 Chloride 97.3 L Carbon Dioxide 22 Anion Gap 17 BUN 15 Creatinine 1.0 Estimated GFR > 60 BUN/Creatinine Ratio 15 Glucose 425 H POC Glucose 349 H Calcium 9.5 Magnesium Total Bilirubin Direct Bilirubin Indirect Bilirubin AST ALT Alkaline Phosphatase Total Creatine Kinase 587 H CK-MB (CK-2) 6.4 H CK-MB (CK-2) Rel Index 1.0 Troponin T NT-Pro-B Natriuret Pep Total Protein Albumin Albumin/Globulin Ratio Urine Color Urine Turbidity Urine pH Ur Specific [place] Urine Protein Urine Glucose (UA) Urine Ketones Urine Blood Urine Nitrite Urine Bilirubin Urine Urobilinogen Ur Leukocyte Esterase Urine WBC (Auto) Urine RBC (Auto) Urine Mucus Urine Opiates Screen Urine Methadone Screen Ur Barbiturates Screen Ur Phencyclidine Scrn Ur Amphetamines Screen U Benzodiazepines Scrn Urine Cocaine Screen U Marijuana (THC) Screen Drugs of Abuse Note 02/16/20 02/16/20 02/16/20 11:14 11:14 13:45 WBC RBC Hgb Hct MCV MCH MCHC RDW Plt Count Lymph % (Auto) [place] % (Auto) Eos % (Auto) Baso % (Auto) Lymph # (Auto) [place] # (Auto) Eos # (Auto) Baso # (Auto) Seg Neutrophils % Seg Neutrophils # PT 11.0 L INR 0.79 L APTT 24.6 Sodium Potassium Chloride Carbon Dioxide Anion Gap BUN Creatinine Estimated GFR BUN/Creatinine Ratio Glucose POC Glucose Calcium Magnesium 1.90 Total Bilirubin 0.50 Direct Bilirubin < 0.2 Indirect Bilirubin 0.3 AST 28 ALT 31 Alkaline Phosphatase 96 Total Creatine Kinase CK-MB (CK-2) CK-MB (CK-2) Rel Index Troponin T < 0.010 NT-Pro-B Natriuret Pep 11.96 Total Protein 7.1 Albumin 4.2 Albumin/Globulin Ratio 1.4 Urine Color Urine Turbidity Urine pH Ur Specific [place] Urine Protein Urine Glucose (UA) Urine Ketones Urine Blood Urine Nitrite Urine Bilirubin Urine Urobilinogen Ur Leukocyte Esterase Urine WBC (Auto) Urine RBC (Auto) Urine Mucus Urine Opiates Screen Negative Urine Methadone Screen Negative Ur Barbiturates Screen Negative Ur Phencyclidine Scrn Negative Ur Amphetamines Screen Negative U Benzodiazepines Scrn Negative Urine Cocaine Screen Negative U Marijuana (THC) Screen Negative Drugs of Abuse Note Disclamer 02/16/20 13:45 WBC RBC Hgb Hct MCV MCH MCHC RDW Plt Count Lymph % (Auto) [place] % (Auto) Eos % (Auto) Baso % (Auto) Lymph # (Auto) [place] # (Auto) Eos # (Auto) Baso # (Auto) Seg Neutrophils % Seg Neutrophils # PT INR APTT Sodium Potassium Chloride Carbon Dioxide Anion Gap BUN Creatinine Estimated GFR BUN/Creatinine Ratio Glucose POC Glucose Calcium Magnesium Total Bilirubin Direct Bilirubin Indirect Bilirubin AST ALT Alkaline Phosphatase Total Creatine Kinase CK-MB (CK-2) CK-MB (CK-2) Rel Index Troponin T NT-Pro-B Natriuret Pep Total Protein Albumin Albumin/Globulin Ratio Urine Color Colorless Urine Turbidity Clear Urine pH 5.0 Ur Specific [place] 1.026 Urine Protein <15 mg/dl Urine Glucose (UA) >=500 Urine Ketones Neg Urine Blood Neg Urine Nitrite Neg Urine Bilirubin Neg Urine Urobilinogen < 2.0 Ur Leukocyte Esterase Neg Urine WBC (Auto) < 1.0 Urine RBC (Auto) 1.0 Urine Mucus Few Urine Opiates Screen Urine Methadone Screen Ur Barbiturates Screen Ur Phencyclidine Scrn Ur Amphetamines Screen U Benzodiazepines Scrn Urine Cocaine Screen U Marijuana (THC) Screen Drugs of Abuse Note Critical care attestation.: If time is entered above; I have spent that time in minutes in the direct care of this critically ill patient, excluding procedure time. ED Disposition Clinical Impression: Hyperglycemia due to type 2 diabetes mellitus Qualifiers: Diabetes mellitus fci insulin use: without fci use Qualified Code(s): E11.65 - Type 2 diabetes mellitus with hyperglycemia Disposition: - TO HOME OR SELFCARE Is pt being admited?: No Does the pt Need Aspirin: No Condition: Stable Instructions: Diabetes Mellitus Type 2 in Adults (ED) Additional Instructions: Follow-up with primary care physician. Insulin on a sliding scale would be likely required for optimal control. Rx Metformin 1 g twice daily. Prescriptions: Insulin Regular, Human [HumuLIN R] 1 units SUB-Q BID #1 bottle Metformin HCl [metFORMIN] 1,000 mg PO BID #60 tablet Referrals: PRIMARY CARE [Primary Care Provider] - 3-[address] [facility] [Provider Group] - 2-3 Days Time of Disposition: 16:49
[2020-02-16] MEDS ORDERED: SODIUM CHLORIDE 0.9% 1000 ML 1,000 ML ONE (14:35)
[2020-02-16] MEDS ORDERED: INSULIN REGULAR, HUMAN 100 UNITS/1 ML ONE (14:35)
[2020-02-16 17:24] VITALS: BP 102/64
== END 2020-02-16 17:15 | disposition home or self-care (01) ==
LOC: ED 10:26
DX: E11.65 Type 2 diabetes mellitus with hyperglycemia (principal); F32.9 Major depressive disorder, single episode, unspecified; I10 Essential (primary) hypertension; J45.909 Unspecified asthma, uncomplicated; F17.200 Nicotine dependence, unspecified, uncomplicated; F14.10 Cocaine abuse, uncomplicated; Z98.890 Other specified postprocedural states; Z79.4 Long term (current) use of insulin; Z79.899 Other long term (current) drug therapy; Z88.8 Allergy status to other drugs, medicaments and biological substances
CPT/HCPCS: 36415; 80048; 80076; 80307; 81001; 82550; 82553; 82962; 83735; 83880; 84484; 85025; 85610; 85730; 93005; 96361; 96374; 99284; J7030; J1815